=== PATIENT | male | born 1945 | race Caucasian/White ===

== ENCOUNTER 2017-10-21 05:30 | Inpatient (IN) ==
[2017-10-21] MEDS ORDERED: Sodium Chlor 0.9% Inj 500 ML IV.SIG SCH (07:00)
[2017-10-21] MEDS ORDERED: Metoprolol Tartrate 25 MG Tablet PO SCH (07:00)
[2017-10-21] MEDS ORDERED: Chlorhexidine Gluconate 2% 1 Pack (2 Cloths) TOPICAL SCH (07:00)
[2017-10-21] MEDS ORDERED: diazePAM 5 MG Tablet PO PRN (07:01)
[2017-10-21] MEDS ORDERED: HYDROmorphone PF Inj 1 MG/ML Ampul IV.PUSH PRN (07:04)
[2017-10-21] MEDS ORDERED: Zolpidem Tartrate 5 MG Tablet PO PRN (07:04)
[2017-10-21] MEDS ORDERED: Post-op Orders (for Pharmacy) OTHER STA (07:04)
[2017-10-21] MEDS ORDERED: Bisacodyl 10 MG Supp RECTAL PRN (07:04)
[2017-10-21] MEDS ORDERED: ceFAZolin 2 GM Premix Inj 0 GM/0 ML PIGGYBACK IV.SIG ONE (07:08)
[2017-10-21] MEDS ORDERED: Bupivacaine Liposomal PF 1.3% Inj 20 ML Vial ONE (07:18)
[2017-10-21] MEDS ORDERED: Bupivacaine PF 0.25% Inj 30 ML Vial ONE (07:18)
[2017-10-21] MEDS ORDERED: Chlorhexidine 4% Topical 120 APPLIC/120 ML Bottle TOPICAL SCH (07:30)
[2017-10-21] MEDS ORDERED: Sodium Chlor 0.9% Inj 73.07 ML, Ropivacaine 0.5% PF Inj 24.63 ML, Ketorolac Inj 30 MG, ... P-ARTICULR SCH ×25 (07:30→07:45)
[2017-10-21] MEDS ORDERED: Bupivacaine/Dextrose 0.75% Inj 2 ML Ampul ONE (07:44)
[2017-10-21] MEDS ORDERED: Famotidine PF Inj 20 MG/2 ML Vial ONE (07:47)
[2017-10-21] MEDS ORDERED: Propofol Inj 500 MG/50 ML Vial ONE (07:52)
[2017-10-21] MEDS ORDERED: Dexamethasone Inj 20 MG/5 ML Vial ONE (08:00)
[2017-10-21] MEDS ORDERED: SODIUM CHLOR 0.9% IV.SIG SCH (08:00)
[2017-10-21] MEDS ORDERED: Vancomycin Inj 1 GM/200 ML PIGGYBACK IV.SIG SCH (08:00)
[2017-10-21] MEDS ORDERED: ceFAZolin 2 GM Premix Inj 2 GM/50 ML PIGGYBACK IV.SIG SCH (08:00)
[2017-10-21] MEDS ORDERED: TRANEXAMIC ACID IV.SIG SCH (08:00)
[2017-10-21] MEDS: Dexamethasone Inj 20 MG/5 ML Vial IV.PUSH ONE ×2 (08:07→18:44)
[2017-10-21 08:28] LABS: INR 1.1 Ratio; Prothrombin Time 11.4 sec (9.8-11.6)
[2017-10-21] MEDS ORDERED: ceFAZolin Inj 3,000 MG in Sodium Chlor 0.9% Inj 100 ML IV.SIG SCH (09:00)
[2017-10-21] MEDS ORDERED: fentaNYL Citrate Inj 100 MCG/2 ML Ampul ONE (11:07)
[2017-10-21] MEDS ORDERED: *Meperidine Inj 25 MG/ML Vial PERIprocedural Use ONLY ONE (11:07)
[2017-10-21] MEDS ORDERED: Tranexamic Acid Inj 3,000 MG in Sodium Chlor 0.9% Inj 100 ML P-ARTICULR SCH (11:11)
[2017-10-21] MEDS ORDERED: Benzocaine/Menthol 15 MG/3.6 MG SF Lozenge BUCCAL PRN (11:43)
--- NOTE | 2017-10-21 12:03 | XR ---
EXAM DATE: 10/21/2017 11:58 AM EDT AGE/SEX: 72 years / Male INDICATIONS: Post op left total knee replacement. CLINICAL DATA: This is the patient's initial encounter. Patient reports that signs and symptoms have been present for 1 day and indicates a pain score of 6/10. MEDICAL/SURGICAL HISTORY: . Cardiovascular disease. A-fib. . Loop recorder. COMPARISON: No prior exams available for comparison. FINDINGS: Views left knee are obtained. Left knee arthroplasty. No hardware loosening or fracture. Postsurgical changes CONCLUSION: Left knee arthroplasty Electronically signed by: Edy Dee MD 10/21/2017 12:02 PM EDT
[2017-10-21] MEDS ORDERED: dilTIAZem CD 240 MG Capsule PO ONE (12:05)
--- NOTE | 2017-10-21 12:11 | P.CON ---
History of Present Illness Service: [facility] Consult date: 10/21/17 Requesting Physician: John Ash Reason for Consult: Assist with medical management Primary Care Provider: Antonio Gao Family Provider: Antonio Gao Chief Complaint: Left Knee Pain History of Present Illness: Patient is a 72-year-old male with primary medical history of [place], atrial fibrillation, AAA with repair, Raman's esophagus who came into the hospital for elective left knee surgery. Patient is status post left total knee arthroplasty by Dr. Ash. Patient was intubated in the OR secondary to desaturation. He is now extubated on O2 nasal cannula and recently just had duo nebs. Patient states that his throat is sore. He denies shortness of breath but O2 sat reading is 87-89% on 2 L nasal cannula. Patient reports has a history of 1-1/2 pack per day smoking, quit 14 years ago. His heart rate is also slightly elevated 100-130s when he is talking. He states he is pain-free, states that left leg is still numb from the anesthesia and block. Denies pain and discomfort. Denies chest pain, palpitations, headaches, dizziness. Denies n/ v/d. Review of Systems All other systems reviewed negative except as stated in HPI PMFSH - History History Provided By: Patient - Medical History Medical History: Medical History (Last Updated 10/07/17 @ 16:28 by Linda Saenz RN) A-fib AAA (abdominal aortic aneurysm) Back pain Raman esophagus Cholecystectomy planned Myocardial infarction Normal colonoscopy Renal cyst - Surgical History Surgical History: Surgical History (Last Updated 10/07/17 @ 17:11 by Linda Saenz RN) History of loop recorder (Acute) H/O arthroscopy of right knee H/O blepharoplasty History of AAA (abdominal aortic aneurysm) repair Hx of cystoscopy - Family History Family History: Family History (Last Updated 10/21/17 @ 12:03 by JESSICA Sadler) Mother Family history of cancer Father Coronary artery disease - Tobacco History Second Hand Smoke Exposure: No Tobacco Use In Past 30 Days: No Smoking Status: Former smoker Number of Pack Years (if former smoker): 40 - Alcohol History How Often Do You Have a Drink Containing Alcohol: Monthly or less - Substance Use History Substance History: No History of Abuse Medications and Allergies Active Medications: Active Medications Hydrocodone Bitart/Acetaminophen ([place] 7.5/325) 1 tab PO Q4H PRN PRN Reason: PAIN LESS THAN 5 ON SCALE Hydrocodone Bitart/Acetaminophen ([place] 7.5/325) 2 tab PO Q6H PRN PRN Reason: PAIN SCALE 5 TO 10 Al Hydroxide/Mg Hydroxide (Milk Of Magnnena Liq) 30 ml PO BID PRN PRN Reason: Mild Constipation Albuterol (Duoneb Neb (Antwan)) 1 ampul NEB Q6HR WHILE AWAKE NEB [facility] Albuterol (Duoneb Neb (Prn)) 1 ampul NEB Q4HR NEB PRN PRN Reason: SHORTNESS OF BREATH/WHEEZING Aspirin (Aspirin Chew) 81 mg PO DAILY [facility] Atorvastatin Calcium (Lipitor) 40 mg PO DAILY [facility] Benzocaine/Menthol (Cepacol Max Strength) 1 lozenge BUCCAL Q2H PRN PRN Reason: SORE THROAT Bisacodyl (Dulcolax Supp) 10 mg RECTAL DAILY PRN PRN Reason: SEVERE CONSITIPATION Budesonide/Formoterol Fumarate (Symbicort 160/4.5 Mcg Inh) 1 puff INH BID [facility] Chlorhexidine Gluconate (Chlorhexidine 2% Cloth) 3 pack TOPICAL PEDIGREE TRACER [facility] Stop: 10/24/17 06:59 Last Admin: 10/21/17 05:45 Dose: 3 pack Chlorhexidine Gluconate (Hibiclens 4% Topical) 1 applicatio TOPICAL ONCE [facility] Stop: 10/25/17 07:29 Sodium Chloride 73.07 ml/Ropivacaine 24.63 ml/Ketorolac Tromethamine 30 mg/ Epinephrine HCl 0.5 mg/cloNIDine PF Inj 80 mcg 0 ml P-ARTICULR ONCE [facility] Diazepam (Valium) 5 mg PO BID PRN PRN Reason: Anxiety Diltiazem HCl (Cardizem Cd 24hr) 240 mg PO DAILY [facility] Diphenhydramine HCl (Benadryl) 25 mg PO Q6H PRN PRN Reason: ITCHING Enalapril Maleate (Vasotec) 10 mg PO DAILY [facility] Hydromorphone HCl (Dilaudid Pf Inj) 1 mg IV.PUSH Q3H PRN PRN Reason: BREAKTHROUGH PAIN Lactated Ringer's (Lr 1000 Ml Inj) 1,000 mls @ 30 mls/hr IV.SIG .Q24H [facility] Stop: 10/24/17 06:59 Last Infusion: 10/21/17 09:30 Dose: Infused Sodium Chloride (Ns Inj) 500 mls @ 30 mls/hr IV.SIG .Q10H [facility] Stop: 10/24/17 06:59 Cefazolin Sodium/Dextrose (Ancef 2 Gm Premix Inj) 2 gm in 50 mls @ 100 mls/hr IV.SIG Q6H [facility] Stop: 10/21/17 20:29 Lactated Ringer's (Lr 1000 Ml Inj) 1,000 mls @ 80 mls/hr IV.CONT .[id number] [facility] Cefazolin Sodium/Dextrose (Ancef 2 Gm Premix Inj) 2 gm in 50 mls @ 100 mls/hr IV.SIG PEDIGREE TRACER [facility] Stop: 10/25/17 07:59 Last Infusion: 10/21/17 08:14 Dose: Infused Vancomycin/Sodium Chloride (Vancomycin Inj) 1 gm in 200 mls @ 200 mls/hr IV.SIG PEDIGREE TRACER [facility] Stop: 10/25/17 07:59 Last Infusion: 10/21/17 08:10 Dose: Infused Tranexamic Acid 1,597.5 mg/ (Sodium Chloride) 115.975 mls @ 200 mls/hr IV.SIG ONCE [facility] Stop: 10/22/17 07:59 Tranexamic Acid 3,000 mg/ (Sodium Chloride) 130 mls @ 200 mls/hr P-ARTICULR ONCE [facility] Stop: 10/22/17 11:10 Cefazolin Sodium 3,000 mg/ (Sodium Chloride) 130 mls @ 200 mls/hr IV.SIG PEDIGREE TRACER [facility] Lactulose (Lactulose Liq) 30 ml PO DAILY PRN PRN Reason: SEVERE CONSITIPATION Metoprolol Tartrate (Lopressor) 25 mg PO PEDIGREE TRACER [facility] Stop: 10/24/17 06:59 Miscellaneous Information (Misc Nursing Information) 1 each OTHER UNSCH PRN PRN Reason: SEE LABEL COMMENTS Stop: 10/22/17 10:54 Multivitamins/Minerals (Theragran-M) 1 tab PO BID [facility] Stop: 12/20/17 08:59 Non-Formulary Medication (Bisoprolol-Hydrochlorothiazide [Bisoprolol- Hydrochlorothiazide]) 1 tab PO DAILY [facility] Ondansetron HCl (Zofran Odt) 4 mg SL Q6H PRN PRN Reason: NAUSEA OR VOMITING Pantoprazole Sodium (Protonix) 20 mg PO DAILY [facility] Povidone Iodine (Betadine 5% Antisepsis Kit) 1 applicatio EACH NARE PEDIGREE TRACER [facility] Stop: 10/24/17 06:59 Last Admin: 10/21/17 07:50 Dose: 1 applicatio Povidone Iodine (Betadine 7.5% Scrub) 1 applicatio TOPICAL ONCE [facility] Stop: 10/25/17 07:59 Senna/Docusate Sodium (Mildred-Colace) 1 tab PO BID [facility] Sennosides (Senokot) 17.2 mg PO BID PRN PRN Reason: Moderate Constipation Sodium Chloride (Ns Flush) 2 ml IV.FLUSH BID [facility] Sodium Chloride (Ns Flush) 2 ml IV.FLUSH PRN PRN PRN Reason: FLUSH AFTER USING IV ACCESS Warfarin Sodium (Coumadin) 5 mg PO DAILY@1600 [facility] Zolpidem Tartrate (Ambien) 5 mg PO HS PRN PRN Reason: INSOMNIA Allergies Allergy/AdvReac Type Severity Reaction Status Date / Time clarithromycin [From Biaxin] Allergy Rash Verified 10/21/17 07:08 Home Medications Medication Instructions Recorded Confirmed Type aspirin [Aspirin Low Dose] 81 mg PO DAILY 10/07/17 10/21/17 History atorvastatin 40 mg PO DAILY 10/07/17 10/21/17 History bisoprolol-hydrochlorothiazide 1 tab PO DAILY 10/07/17 10/21/17 History cholecalciferol (vitamin D3) 2,000 unit PO DAILY 10/07/17 10/21/17 History [Vitamin D3] diazepam [Valium] 5 mg PO BID PRN 10/07/17 10/21/17 History diltiazem HCl [Cartia XT] 240 mg PO DAILY 10/07/17 10/21/17 History enalapril maleate 10 mg PO DAILY 10/07/17 10/21/17 History hydrochlorothiazide 25 mg PO DAILY 10/07/17 10/21/17 History ketoconazole 1 applic TOPICAL DAILY 10/07/17 10/21/17 History nitroglycerin [Nitrostat] 0.4 mg SUBLINGUAL Q5-15M PRN 10/07/17 10/21/17 History omeprazole magnesium [Prilosec OTC] 20 mg PO DAILY 10/07/17 10/21/17 History omeprazole-sodium bicarbonate 1 cap PO DAILY 10/07/17 10/21/17 History [Zegerid OTC] tramadol 50 mg PO Q6H PRN 10/07/17 10/21/17 History vitamin X46-[id number] acid 1 tab SUBLINGUAL DAILY 10/07/17 10/21/17 History warfarin 5 mg PO DAILY 10/07/17 10/21/17 History Physical Exam Vital signs: Vital Signs 10/21/17 07:55 Pulse Rate 91 H Pulse Oximetry 97 Intake & Output 10/20/17 10/21/17 10/21/17 18:59 06:59 18:59 Intake Total 2250 / 2250 Output Total 250 / 250 Balance 1999 / 1999 Weight 106.5 kg Intake: IV 1250 / 1250 LR 1000 mL Inj 1,000 ML @ 30 1000 / 1000 mls/hr IV.SIG .Q24H [facility] Rx#: [id number] Vancomycin Inj 1 gm In 200 ml @ 200 / 200 200 mls/hr IV.SIG PEDIGREE TRACER [facility] Rx#:[id number] Ancef 2 GM Premix Inj 2 gm In 50 / 50 50 ml @ 100 mls/hr IV.SIG PEDIGREE TRACER [facility] Rx#:[id number] Anesthesia Amount 1000 / 1000 Output: Estimated Blood Loss 100 / 100 Urine Amount (Catheter) 150 / 150 Indwelling Urethral Catheter 150 / 150 Other: Weight On Admission 106.5 kg Narrative: GENERAL: This is a well-nourished, well-developed patient, in no apparent distress. SKIN: Warm and dry. HEENT: Normocephalic. Pupils equal round and reactive. Nose without bleeding. Airway patent. NECK: Trachea midline. CARDIOVASCULAR: Regular rate and rhythm without murmurs, gallops, or rubs. RESPIRATORY: Clear to auscultation. Breath sounds equal bilaterally. No wheezes , rales, or rhonchi. GASTROINTESTINAL: Abdomen soft, non-tender, nondistended. Bowel Sounds normoactive x4. MUSCULOSKELETAL: Extremities without clubbing, cyanosis. Trace edema right arm , LLE. LLE balwinder wrap in place NEUROLOGICAL: Awake and alert. Oriented to place, person. No focal neuro deficit. Moves all extremities. Normal speech. - Urinary Catheter Management Indwelling Urethral Catheter Cath placed during this visit: yes Reason for continuing: Hourly intake/output Insertion date: 10/21/17 Insertion time: 09:00 Assessment and Plan - Plan Patient is a 72-year-old male with primary medical history of [place], atrial fibrillation, AAA with repair, Raman's esophagus who came into the hospital for elective left knee surgery. Left knee osteoarthritis, status post left total knee arthroplasty, Dr. Ash -Orthopedic doctor following -Pain management with bowel regimen -PT eval and treat Hypoxemia Possibly underlying COPD, 40 pack years, quit 14 years ago -Intubated in the OR secondary to desaturation -Duo nebs scheduled and as needed -Supplemental oxygen keep O2 sat greater than 90% -Symbicort. If warranted will do IV Solu-Medrol x1 dose, 60mg Atrial fibrillation, chronic Currently uncontrolled rate -Possibly have missed his dose of diltiazem this morning. Diltiazem 1 dose now -Continue home medications -Monitor heart rate HTN HLD -Continue home medications aspirin 81 mg, atorvastatin 40 mg, enalapril 10 mg daily, hydrochlorothiazide 6.25mg -Monitor BP trend DVT prop Coumadin Code Status: Full Code Discussed Condition With: Patient, nursing Discharge Planning: DC disposition by orthopedic surgeon
[2017-10-21] MEDS ORDERED: *morphine SULFATE 4 MG/ML PERIprocedure ONLY ONE (13:37)
[2017-10-21] MEDS ORDERED: Glycopyrrolate Inj 1 MG/5 ML Syringe IV.PUSH ONE (14:19)
[2017-10-21] MEDS ORDERED: Phenylephrine/NS 1000 MCG/10ML Syringe IV.PUSH ONE (14:19)
[2017-10-21] MEDS ORDERED: Lidocaine PF 1% Inj 5 ML Syringe INFILTRATN ONE (14:19)
[2017-10-21] MEDS ORDERED: Neostigmine Inj 5 MG/5 ML Syringe IV.PUSH ONE (14:19)
[2017-10-21] MEDS: ceFAZolin 2 GM Premix Inj 2 GM/50 ML PIGGYBACK IV.SIG SCH ×2 (15:29→20:04)
[2017-10-21] MEDS: Pantoprazole Sodium 20 MG DR Tablet PO SCH (16:39)
[2017-10-21] MEDS: dilTIAZem CD 240 MG Capsule PO SCH (16:39)
[2017-10-21] MEDS: hydroCHLOROthiazide 25 MG Tablet PO SCH (18:45)
[2017-10-21] MEDS: Multivitamin/Minerals Therapeutic Tablet PO SCH ×2 (18:45→20:04)
[2017-10-21] MEDS: Budesonide-Formoterol 160/4.5 MCG 6 GM Inhaler INH SCH (18:45)
[2017-10-21] MEDS: Senna/Docusate Sodium 8.6/50 MG Tablet PO SCH ×2 (18:45→20:04)
[2017-10-22] MEDS: Budesonide-Formoterol 160/4.5 MCG 6 GM Inhaler INH SCH ×2 (00:15→08:49)
[2017-10-22] MEDS: ceFAZolin 2 GM Premix Inj 2 GM/50 ML PIGGYBACK IV.SIG SCH (02:09)
[2017-10-22 06:20] LABS: Hematocrit 40.4 % (39.0-51.0); Hemoglobin 13.8 gm/dL (13.0-17.0)
[2017-10-22 06:32] LABS: Calcium 9.2 mg/dL (8.5-10.1); Carbon Dioxide 24.5 meq/L (21.0-32.0); Potassium 4.4 meq/L (3.5-5.1)
[2017-10-22] MEDS: Pantoprazole Sodium 20 MG DR Tablet PO SCH (08:40)
[2017-10-22] MEDS: Senna/Docusate Sodium 8.6/50 MG Tablet PO SCH (08:40)
[2017-10-22] MEDS: dilTIAZem CD 240 MG Capsule PO SCH (08:40)
[2017-10-22] MEDS: Multivitamin/Minerals Therapeutic Tablet PO SCH (08:40)
--- NOTE | 2017-10-22 08:40 | P.PNOP ---
Subjective Interval history: pain tolerable. Physical Exam Vital signs: Vital Signs 10/21/17 10:59 10/21/17 11:15 10/21/17 11:30 Temperature 97.6 F Pulse Rate 136 H 118 H 123 H Respiratory Rate 14 21 12 Blood Pressure 102/67 114/75 105/63 Pulse Oximetry 94 L 100 10/21/17 11:45 10/21/17 12:00 10/21/17 12:30 Temperature 97.7 F Pulse Rate 98 H 106 H 94 H Respiratory Rate 23 15 19 Blood Pressure 110/59 L 106/60 101/62 Pulse Oximetry 100 99 96 10/21/17 13:00 10/21/17 13:30 10/21/17 14:55 Temperature 95.5 F L Pulse Rate 94 H 99 H Respiratory Rate 18 16 17 Blood Pressure 109/70 110/68 104/59 L Pulse Oximetry 100 100 98 10/21/17 20:10 10/21/17 20:20 10/22/17 00:00 Temperature 97.7 F 97.9 F Pulse Rate 98 H 111 H Respiratory Rate 18 16 16 Blood Pressure 126/66 111/75 Pulse Oximetry 96 94 L 10/22/17 02:42 10/22/17 04:55 10/22/17 08:00 Temperature 97.4 F L 97.4 F L Pulse Rate 101 H 99 H Respiratory Rate 18 17 17 Blood Pressure 113/58 L 121/62 Pulse Oximetry 95 95 Intake & Output 10/21/17 10/22/17 10/22/17 18:59 06:59 18:59 Intake Total 2300 / 2300 1770 / 1770 180 / 180 Output Total 500 / 500 600 / 600 Balance 1800 / 1800 1170 / 1170 180 / 180 Weight 106.5 kg 106.5 kg Intake: IV 1300 / 1300 1050 / 1050 180 / 180 LR 1000 mL Inj 1,000 ML @ 80 1000 / 1000 mls/hr IV.CONT .[id number] [facility] Rx# :[id number] LR 1000 mL Inj 1,000 ML @ 30 1000 / 1000 mls/hr IV.SIG .Q24H [facility] Rx#: [id number] Vancomycin Inj 1 gm In 200 ml @ 200 / 200 200 mls/hr IV.SIG CHLORINE PLANT OPERATOR [facility] Rx#:[id number] Ancef 2 GM Premix Inj 2 gm In 100 / 100 50 / 50 50 / 50 50 ml @ 100 mls/hr IV.SIG Q6H [facility] Rx#:[id number] Cyklokapron Inj 3,000 MG In NS 130 / 130 Inj 100 ML @ 200 mls/hr P- ARTICULR ONCE [facility] Rx#:[id number] Oral 720 / 720 Anesthesia Amount 1000 / 1000 Output: Urine 250 / 250 600 / 600 Estimated Blood Loss 100 / 100 Urine Amount (Catheter) 150 / 150 Indwelling Urethral Catheter 150 / 150 Other: Date of Last Bowel Movement 10/20/17 # Bowel Movements 0 Weight On Admission 106.5 kg Narrative: in bed, nad dressing c/d/i neg hermelinda nvi able to do straight leg raise - Urinary Catheter Management Indwelling Urethral Catheter Cath placed during this visit: yes Reason for continuing: Hourly intake/output Insertion date: 10/21/17 Insertion time: 09:00 Results - Labs CBC & Chem 7: 10/22/17 05:21 10/22/17 05:21 Laboratory Results - last 24 hr 10/21/17 10/22/17 10/22/17 07:50 05:21 05:21 Hgb 13.8 Hct 40.4 Sodium 140 Potassium 4.4 Chloride 103 Carbon Dioxide 24.5 Anion Gap 13 BUN 25 H Creatinine 1.21 Estimated GFR 59 L Random Glucose 142 H Calcium 9.2 Antibody Screen Negative - Imaging Impressions Knee X-Ray 10/21/17 07:02 CONCLUSION: Left knee arthroplasty Assessment and Plan - Ortho Post Op Day # 1 - Assessment and Plan s/p L TKA wbat ok to maintain dressing unless saturated resume coumadin and asa 81 PT d/c planning home with [facility] and pt cleared today if does well in PT f/up dr. chadwick 2 weeks
[2017-10-22] MEDS: hydroCHLOROthiazide 25 MG Tablet PO SCH (08:41)
--- NOTE | 2017-10-22 08:48 | P.DCO ---
- Physical Therapy Physical Therapy: Gait training, Safety evaluation Knee: Total knee, Protocol: Left, Full weight bearing Left Lower Extremity Weight Bearing: Weight bearing as tolerated - Nursing Nursing: Dressing changes Dressing changes: Daily dressing change - Certification Need for Home Health services: I have seen patient Saul Jason on 10/22/17. My clinical findings support the need for the requested home health care services because: Need for Home Health Services: Limited ability to care for self, High risk of falls Homebound Certification: I certify that my clinical findings support that this patient is homebound because: Homebound Certification: Post-op weakness, Unsteady gait/balance
--- NOTE | 2017-10-22 12:47 | P.PN ---
Subjective Interval history: Follow-up for left total knee arthroplasty. Patient is currently doing well. Denies any chest pain, shortness of breath, fever or chills. He is likely being discharged home today. Physical Exam Vital signs: Vital Signs 10/21/17 13:00 10/21/17 13:30 10/21/17 14:55 Temperature 95.5 F L Pulse Rate 94 H 99 H Respiratory Rate 18 16 17 Blood Pressure 109/70 110/68 104/59 L Pulse Oximetry 100 100 98 10/21/17 20:10 10/21/17 20:20 10/22/17 00:00 Temperature 97.7 F 97.9 F Pulse Rate 98 H 111 H Respiratory Rate 18 16 16 Blood Pressure 126/66 111/75 Pulse Oximetry 96 94 L 10/22/17 02:42 10/22/17 04:55 10/22/17 08:00 Temperature 97.4 F L 97.4 F L Pulse Rate 101 H 99 H Respiratory Rate 18 17 17 Blood Pressure 113/58 L 121/62 Pulse Oximetry 95 95 10/22/17 12:00 Temperature 98.0 F Pulse Rate 114 H Respiratory Rate 18 Blood Pressure 98/53 L Pulse Oximetry 97 Intake & Output 10/21/17 10/22/17 10/22/17 18:59 06:59 18:59 Intake Total 2300 / 2300 1770 / 1770 180 / 180 Output Total 500 / 500 600 / 600 Balance 1800 / 1800 1170 / 1170 180 / 180 Weight 106.5 kg 106.5 kg Intake: IV 1300 / 1300 1050 / 1050 180 / 180 LR 1000 mL Inj 1,000 ML @ 80 1000 / 1000 mls/hr IV.CONT .[id number] [facility] Rx# :[id number] LR 1000 mL Inj 1,000 ML @ 30 1000 / 1000 mls/hr IV.SIG .Q24H [facility] Rx#: [id number] Vancomycin Inj 1 gm In 200 ml @ 200 / 200 200 mls/hr IV.SIG BEAD BUILDER [facility] Rx#:[id number] Ancef 2 GM Premix Inj 2 gm In 100 / 100 50 / 50 50 / 50 50 ml @ 100 mls/hr IV.SIG Q6H [facility] Rx#:[id number] Cyklokapron Inj 3,000 MG In NS 130 / 130 Inj 100 ML @ 200 mls/hr P- ARTICULR ONCE [facility] Rx#:[id number] Oral 720 / 720 Anesthesia Amount 1000 / 1000 Output: Urine 250 / 250 600 / 600 Estimated Blood Loss 100 / 100 Urine Amount (Catheter) 150 / 150 Indwelling Urethral Catheter 150 / 150 Other: Date of Last Bowel Movement 10/20/17 10/20/17 # Bowel Movements 0 Weight On Admission 106.5 kg Narrative: GENERAL: This is a well-nourished, well-developed patient, in no apparent distress. SKIN: Warm and dry. HEENT: Normocephalic. Pupils equal round and reactive. Nose without bleeding. Airway patent. NECK: Trachea midline. CARDIOVASCULAR: Irreg Irreg without murmurs, gallops, or rubs. RESPIRATORY: Clear to auscultation. Breath sounds equal bilaterally. No wheezes , rales, or rhonchi. GASTROINTESTINAL: Abdomen soft, non-tender, nondistended. Bowel Sounds normoactive x4. MUSCULOSKELETAL: Extremities without clubbing, cyanosis. Trace edema right arm , LLE. LLE balwinder wrap in place NEUROLOGICAL: Awake and alert. Oriented to place, person. No focal neuro deficit. Moves all extremities. Normal speech. - Urinary Catheter Management Indwelling Urethral Catheter Cath placed during this visit: yes Reason for continuing: Hourly intake/output Insertion date: 10/21/17 Insertion time: 09:00 Results - Labs CBC & Chem 7: 10/22/17 05:21 10/22/17 05:21 Laboratory Results - last 24 hr 10/22/17 10/22/17 05:21 05:21 Hgb 13.8 Hct 40.4 Sodium 140 Potassium 4.4 Chloride 103 Carbon Dioxide 24.5 Anion Gap 13 BUN 25 H Creatinine 1.21 Estimated GFR 59 L Random Glucose 142 H Calcium 9.2 Assessment and Plan - Plan Patient is a 72-year-old male with primary medical history of [place], atrial fibrillation, AAA with repair, Raman's esophagus who came into the hospital for elective left knee surgery. Left knee osteoarthritis, status post left total knee arthroplasty, Dr. Ash -Orthopedic surgery following -Pain management with bowel regimen -PT eval and treat. Likely discharge today. Hypoxemia Possibly underlying COPD, 40 pack years, quit 14 years ago -Intubated in the OR secondary to desaturation -Duo nebs scheduled and as needed -Supplemental oxygen PRN keep O2 sat greater than 90% -Symbicort. Atrial fibrillation, chronic CAD - Continue Diltiazem. - Continue Warfarin and aspirin per patient's roading engineer. HTN HLD -Continue home medications aspirin 81 mg, atorvastatin 40 mg, enalapril 10 mg daily, hydrochlorothiazide 6.25mg Full code. Warfarin.
--- NOTE | 2017-11-05 09:57 | MD ---
cc: John Ash MD DATE OF DISCHARGE: 10/22/2017 ADMITTING DIAGNOSIS: Severe degenerative osteoarthritis of the left knee. DISCHARGE DIAGNOSIS: Severe degenerative osteoarthritis of the left knee. HISTORY OF PRESENT ILLNESS: Mr. Jason is a 72-year-old male who is a patient of Dr. John [facility]. He is currently under care for progressive and severe left knee pain. The patient's left knee pain is inhibiting his activities of daily living. He describes a severe aching sensation with weightbearing activities. He has no alleviating factors at this point in time, although in the past he has tried medications, bracing, physical therapy, home exercises as well as corticosteroid injection without relief of symptoms. He does have x-ray evidence of severe degenerative changes of the left knee joint. While in the office, the patient was counseled on his diagnosis and treatment options. Risks, benefits, and indications all were discussed. The patient did elect to proceed with surgical intervention to include a left total knee arthroplasty. DATE OF SURGERY: 10/21/2017. PROCEDURE PERFORMED: Left total knee arthroplasty. POSTOP: After surgery the patient was admitted to [facility] where he received appropriate medical management, pain control, DVT prophylaxis, as well as physical therapy. DISCHARGE: Once being discharged from the hospital, the patient is cleared to go home where he will receive home health care and home physical therapy. CONDITION ON DISCHARGE: He is in stable condition. DISCHARGE INSTRUCTIONS: He may weight-bear as tolerated. He has been instructed on wound care management. DISCHARGE MEDICATIONS: He has been provided prescriptions for pain control and has resumed his anticoagulation medication, Coumadin, as well as aspirin. FOLLOWUP: The patient has been provided a followup appointment in approximately 2 weeks from his date of surgery. The patient has asked appropriate questions which have been answered. The patient has been discharged. Dictated by NIA Yo MD BRYON Vera/HAILEY , 11:06 AM , 11:21 AM
== END 2017-10-22 14:20 | disposition home health service (06) ==
LOC: HSDI 05:30 → N06 14:00
PROVIDERS: ADMIT Orthopaedic Surgery Sports Medicine; ATTEND Orthopaedic Surgery Sports Medicine